=== PATIENT | female | born 1965 | race Caucasian/White ===

== ENCOUNTER 2016-09-05 18:13 | Emergency (ER) | payer BC ==
[~2016-09-05] VITALS: Ht 167.6 cm; Wt 78.0 kg
[~2016-09-05 18:13] MED LIST: ABILIFY10 MG PO; ABILIFY5 MG PO; ADVIL,NUPRIN,M200 MG PO; ALDACTONE25 MG PO; ALPRAZOLAM0.5 MG PO; ARIPIPRAZOLE10 MG PO; ASACOL HD800 MG PO; ATARAX,VISTARIL50 MG PO; ATIVAN1 MG PO; AUGMENTIN875 MG PO; Aldactone PO; BACLOFEN10 MG PO; BACTRIM,SEPT1 TABLE1 PO; BUTALB-APAP-CA1 EACH PO; CARAFATE1 GM PO; CIPRO500 MG PO; COMPAZINE10 MG PO; DAILY VALUE1 EACH PO; DILAUDID2 MG PO; EFFEXOR75 MG PO; FENOFIBRATE160 M1 PO; FERROUS SULFAT325 MG PO; FIORICET 50-301 EACH PO; FIORICET,ESG1 TABLET PO; FLAGYL500 MG PO; FLEXERIL10 MG PO; FLEXERIL5 MG PO; FLUOXETINE HCL20 M1 PO; HYDROCODON-ACE1 EAC7 PO; HYDROCODONE-AP1 EACH PO; HYOSCYAMINE0.375 MG PO; IMITREX100 MG PO; IMITREX25 MG PO; INDERAL LA120 MG PO; INDERAL LA80 MG PO; INDERAL20 MG PO; INDERAL40 MG PO; IRON325 M1 PO; JANUMET XR 50-1 EAC1 PO; KLONOPIN1 MG PO; LEVBID0.375 MG PO; LEVOTHYROXINE50 MCG PO; LORTAB 5-325 M1 EACH PO; Levothroid,Synthroid PO; METFORMIN HCL500 MG PO; MIGRANAL1 ML BOTH NARES; NADOLOL20 MG PO; NAPROSYN500 MG PO; NIFEDIPINE ER30 MG PO; NORCO 5/3251 TABLET PO; ONE-A-DAY ESSE1 EAC1 PO; OXYCODONE HCL5 MG PO; PANTOPRAZOLE SO40 MG PO; PERCOCET 5/31 TABLET PO; PHENERGAN12.5 M1 PO; POTASSIUM CHLO20 ME2 PO; POTASSIUM CITR15 MEQ PO; PREDNISONE10 MG PO; PREDNISONE50 MG PO; PROMETHAZINE HC25 M1 PO; PROPRANOLOL HC120 MG PO; PROTONIX40 MG PO; PROZAC20 MG PO; REGLAN10 MG PO; SOMA350 MG PO; SYMAX DUOTAB0.375 MG PO; SYNTHROID,LEVO0.5 MG; TIZANIDINE HCL2 M1 PO; TOPAMAX100 MG PO; TOPAMAX25 MG PO; TOPAMAX50 MG PO; TOPIRAMATE25 MG PO; TOPIRAMATE50 MG PO; TUMS500 M1 PO; TYLENOL WITH C1 EACH PO; Tums PO; ULTRAM50 MG PO; VALIUM5 MG PO; ZOFRAN ODT8 MG PO; ZOFRAN4 MG PO
[2016-09-05 19:27] LABS: HEMATOCRIT 35.1 % (36.0-46.0); MCHC 34.5 G/DL (30.0-36.0); MCV 86.9 FL (83-99); MEAN PLAT.VOLUME 9.5 uM^3 (9.5-12.4); PLATELET COUNT 425 K/uL (156-360); RBC DIS.WIDTH-CV 13.6 % (11.8-14.6); RBC DIS.WIDTH-SD 42.5 % (39-53); RED BLOOD COUNT 4.04 M/uL (3.80-5.20)
[2016-09-05 19:39] LABS: CHLORIDE 110 mEq/L (99-109); POTASSIUM 3.9 mEq/L (3.7-5.4); SODIUM 140 mEq/L (136-147)
[2016-09-05 19:41] LABS: GLUCOSE 159 mg/dL (70-99)
[2016-09-05 19:42] LABS: ANION GAP 13 MEQ/L (2-14)
[2016-09-05 19:43] LABS: TOTAL BILIRUBIN 0.4 mg/dL (0.0-1.0)
[2016-09-05 19:45] LABS: ALKALINE PHOSPHATASE 187 IU/L (3-129); GFR ESTIMATE (CALCULATED) 56 mL/min/
[2016-09-05 19:46] LABS: UREA NITROGEN (BUN) 20 mg/dL (9-23)
[2016-09-05 19:48] LABS: LIPASE 13 U/L (1.0-51.0)
[2016-09-05 20:02] LABS: QUANTITATIVE HCG < 4.0 MIU/ML
[2016-09-05 20:08] LABS: AMYLASE 17 IU/L (1-118)
[2016-09-05 20:17] LABS: ADD MIUA? YES; BILIRUBIN NEGATIVE; BLOOD LARGE; COLOR YELLOW ((YELLOW)); GLUCOSE (STRIP) NEGATIVE; KETONES NEGATIVE; LEUKOCYTES SMALL; NITRITE NEGATIVE; PROTEIN (STRIP) 100; SPECIFIC GRAVITY 1.019 (1.000-1.030); UROBILINOGEN 0.2 MG/DL (0.2-1.0)
[2016-09-05 20:34] LABS: CASTS NONE SEEN /LPF; EPITHELIAL CELLS 4+ /HPF; MUCUS TRACE /LPF
[2016-09-05 20:36] LABS: BACTERIA 1+ /HPF; UCUL ADDED? NO
[2016-09-05] MEDS ORDERED: PERCOCET 5/31 TABLET PO (23:00)
[2016-09-05] MEDS ORDERED: MACROBID100 MG PO (23:00)
[2016-09-05 23:28] VITALS: BP 104/68
== END 2016-09-05 23:40 | disposition home or self-care (01) ==
LOC: EME 18:13
DX: K85.90 Acute pancreatitis without necrosis or infection, unspecified (principal); K86.1 Other chronic pancreatitis; N39.0 Urinary tract infection, site not specified; R73.9 Hyperglycemia, unspecified; Z87.442 Personal history of urinary calculi; Z95.0 Presence of cardiac pacemaker; F17.200 Nicotine dependence, unspecified, uncomplicated
CPT/HCPCS: 74177; 80053; 81003; 82150; 83690; 84702; 85027; 87086; 99281; 99284; J2270; J2405; J3010; J7030

== ENCOUNTER 2016-09-07 18:25 | Emergency (ER) | payer BC ==
[~2016-09-07] VITALS: Ht 167.6 cm; Wt 77.7 kg
[~2016-09-07 18:25] MED LIST changes: +MACROBID100 MG PO
[2016-09-07 19:06] LABS: MCH 29.5 PG (29.0-34.0); MCHC 33.3 G/DL (30.0-36.0); MCV 88.5 FL (83-99); MEAN PLAT.VOLUME 9.5 uM^3 (9.5-12.4); PLATELET COUNT 361 K/uL (156-360); RBC DIS.WIDTH-CV 13.5 % (11.8-14.6); RBC DIS.WIDTH-SD 43.7 % (39-53); RED BLOOD COUNT 3.73 M/uL (3.80-5.20); WHITE BLOOD COUNT 11.1 K/uL (4.1-10.2)
[2016-09-07 19:17] LABS: CHLORIDE 113 mEq/L (99-109); POTASSIUM 3.6 mEq/L (3.7-5.4); SODIUM 141 mEq/L (136-147)
[2016-09-07 19:20] LABS: GLUCOSE 182 mg/dL (70-99)
[2016-09-07 19:21] LABS: ANION GAP 14 MEQ/L (2-14)
[2016-09-07 19:23] LABS: ALKALINE PHOSPHATASE 186 IU/L (3-129); GFR ESTIMATE (CALCULATED) > 59 mL/min/
[2016-09-07 19:24] LABS: UREA NITROGEN (BUN) 13 mg/dL (9-23)
[2016-09-07 19:30] LABS: TOTAL BILIRUBIN 0.2 mg/dL (0.0-1.0)
[2016-09-07 19:33] LABS: QUANTITATIVE HCG < 4.0 MIU/ML
[2016-09-07 19:34] LABS: ADD MIUA? YES; BILIRUBIN NEGATIVE; BLOOD MODERATE; COLOR YELLOW ((YELLOW)); GLUCOSE (STRIP) NEGATIVE; KETONES NEGATIVE; LEUKOCYTES NEGATIVE; NITRITE NEGATIVE; PROTEIN (STRIP) 30; SPECIFIC GRAVITY 1.011 (1.000-1.030); UROBILINOGEN 0.2 MG/DL (0.2-1.0)
[2016-09-07 19:53] LABS: BACTERIA RARE /HPF; EPITHELIAL CELLS RARE /HPF; HYALINE CASTS 0-5 /LPF; MUCUS TRACE /LPF; RED BLOOD CELLS 40-50 /HPF (0-5); UCUL ADDED? NO; UNCLASSIFIED CRYSTALS 1+ /HPF
[2016-09-07 20:42] LABS: LIPASE 8 U/L (1.0-51.0)
[2016-09-07] MEDS ORDERED: PERCOCET 5/31 TABLET PO (21:50)
[2016-09-07 21:58] VITALS: BP 175/146
== END 2016-09-07 22:00 | disposition home or self-care (01) ==
LOC: EME 18:25
DX: K85.90 Acute pancreatitis without necrosis or infection, unspecified (principal); F17.200 Nicotine dependence, unspecified, uncomplicated; Z88.6 Allergy status to analgesic agent; J45.909 Unspecified asthma, uncomplicated; Z90.49 Acquired absence of other specified parts of digestive tract
CPT/HCPCS: 80053; 81003; 83690; 84702; 85027; 99281; 99284; J2270; J2405; J7030; S0028

== ENCOUNTER 2016-09-27 09:05 | Emergency (ER) | payer BC ==
[~2016-09-27] VITALS: Ht 167.6 cm; Wt 75.3 kg
[2016-09-27] MEDS ORDERED: FIORICET WI1 CAPSULE PO (13:16)
[2016-09-27 13:41] VITALS: BP 157/108
[2016-10-01] MEDS ORDERED: NORCO 10/3251 TABLET PO (10:15)
[2016-10-01] MEDS ORDERED: UROCIT-K15 MEQ PO (10:16)
[2016-10-01] MEDS ORDERED: DIOVAN80 MG PO (10:16)
[2016-10-01] MEDS ORDERED: INVOKAMET XR 11 EAC1 PO (10:19)
[2016-10-01] MEDS ORDERED: JANUMET XR 50-1 EAC1 PO (10:19)
== END 2016-09-27 13:42 | disposition home or self-care (01) ==
LOC: EME 09:05
DX: G43.909 Migraine, unspecified, not intractable, without status migrainosus (principal); F17.200 Nicotine dependence, unspecified, uncomplicated
CPT/HCPCS: 99281; 99285; J1885; J2270; J2765; J7030

== ENCOUNTER 2016-10-04 12:56 | Day surgery (SDC) | payer BC ==
[~2016-10-04] VITALS: Ht 167.6 cm; Wt 77.1 kg
[~2016-10-04 12:56] MED LIST changes: +DIOVAN80 MG PO; +FIORICET WI1 CAPSULE PO; +INVOKAMET XR 11 EAC1 PO; +NORCO 10/3251 TABLET PO; +UROCIT-K15 MEQ PO
[2016-10-04 13:40] LABS: POINT-OF-CARE METER ID UU14174212
== END 2016-10-04 15:30 | disposition home or self-care (01) ==
LOC: PAIN 12:56 → SDC 14:00 → PAIN 15:30
PROVIDERS: Anesthesiology Pain Medicine
PROC: 01513ZZ Destruction of Cervical Nerve, Percutaneous Approach (ICD-10-PCS; principal; 2016-10-04)
DX: M47.812 Spondylosis without myelopathy or radiculopathy, cervical region (principal); F41.1 Generalized anxiety disorder; M54.12 Radiculopathy, cervical region; G89.29 Other chronic pain; M25.511 Pain in right shoulder; F17.200 Nicotine dependence, unspecified, uncomplicated; G43.909 Migraine, unspecified, not intractable, without status migrainosus; I10 Essential (primary) hypertension; F32.9 Major depressive disorder, single episode, unspecified; E11.9 Type 2 diabetes mellitus without complications; Z95.0 Presence of cardiac pacemaker
CPT/HCPCS: 82948; J1030; J2250; J3010; S0020

== ENCOUNTER 2016-10-11 13:21 | Day surgery (SDC) | payer BC ==
[~2016-10-11] VITALS: Ht 167.6 cm; Wt 77.1 kg
[2016-10-11 13:49] LABS: POINT-OF-CARE METER ID UU14174212
== END 2016-10-11 15:15 | disposition home or self-care (01) ==
LOC: PAIN 13:21 → SDC 14:00 → PAIN 14:00
PROVIDERS: Anesthesiology Pain Medicine
PROC: 01513ZZ Destruction of Cervical Nerve, Percutaneous Approach (ICD-10-PCS; principal; 2016-10-11)
DX: M47.812 Spondylosis without myelopathy or radiculopathy, cervical region (principal); F41.9 Anxiety disorder, unspecified; M54.2 Cervicalgia; F17.200 Nicotine dependence, unspecified, uncomplicated; G89.29 Other chronic pain; G43.909 Migraine, unspecified, not intractable, without status migrainosus; M25.511 Pain in right shoulder; I10 Essential (primary) hypertension; E11.9 Type 2 diabetes mellitus without complications; F32.9 Major depressive disorder, single episode, unspecified; Z95.0 Presence of cardiac pacemaker
CPT/HCPCS: 82948; J1030; J2250; J3010; S0020

== ENCOUNTER 2016-10-30 12:38 | Emergency (ER) | payer BC ==
[~2016-10-30] VITALS: Ht 167.6 cm; Wt 73.3 kg
[2016-10-30 14:06] LABS: HEMATOCRIT 37.1 % (36.0-46.0); MCH 30.4 PG (29.0-34.0); MCHC 32.3 G/DL (30.0-36.0); MCV 93.9 FL (83-99); MEAN PLAT.VOLUME 9.1 uM^3 (9.5-12.4); PLATELET COUNT 331 K/uL (156-360); RBC DIS.WIDTH-CV 17.2 % (11.8-14.6); RBC DIS.WIDTH-SD 59.8 % (39-53); RED BLOOD COUNT 3.95 M/uL (3.80-5.20); WHITE BLOOD COUNT 9.4 K/uL (4.1-10.2)
[2016-10-30 14:19] LABS: CHLORIDE 116 mEq/L (99-109); POTASSIUM 3.5 mEq/L (3.7-5.4); SODIUM 138 mEq/L (136-147)
[2016-10-30 14:20] LABS: AMYLASE 29 IU/L (1-118)
[2016-10-30 14:22] LABS: GLUCOSE 110 mg/dL (70-99)
[2016-10-30 14:23] LABS: ANION GAP 14 MEQ/L (2-14)
[2016-10-30 14:24] LABS: TOTAL BILIRUBIN 0.1 mg/dL (0.0-1.0)
[2016-10-30 14:25] LABS: ALKALINE PHOSPHATASE 158 IU/L (3-129); GFR ESTIMATE (CALCULATED) > 59 mL/min/
[2016-10-30 14:26] LABS: UREA NITROGEN (BUN) 11 mg/dL (9-23)
[2016-10-30 14:29] LABS: LIPASE 19 U/L (1.0-51.0)
[2016-10-30 14:31] LABS: TROP-I INTERPRETATION NEGATIVE; TROPONIN-I < 0.01 ng/mL (0.0-0.30)
[2016-10-30 14:37] LABS: ADD MIUA? YES; BILIRUBIN NEGATIVE; BLOOD LARGE; COLOR YELLOW ((YELLOW)); GLUCOSE (STRIP) NEGATIVE; KETONES NEGATIVE; LEUKOCYTES MODERATE; NITRITE NEGATIVE; PROTEIN (STRIP) 100; SPECIFIC GRAVITY 1.015 (1.000-1.030); UROBILINOGEN 0.2 MG/DL (0.2-1.0)
[2016-10-30 14:49] LABS: BACTERIA 1+ /HPF; CASTS NONE SEEN /LPF; EPITHELIAL CELLS 3+ /HPF; MUCUS NONE SEEN /LPF; RED BLOOD CELLS TNTC /HPF (0-5)
[2016-10-30 17:56] LABS: CHLORIDE 118 mEq/L (99-109); POTASSIUM 3.7 mEq/L (3.7-5.4); SODIUM 139 mEq/L (136-147)
[2016-10-30 17:57] LABS: GLUCOSE 107 mg/dL (70-99)
[2016-10-30 17:59] LABS: ANION GAP 13 MEQ/L (2-14)
[2016-10-30 18:01] LABS: GFR ESTIMATE (CALCULATED) > 59 mL/min/
[2016-10-30 18:02] LABS: UREA NITROGEN (BUN) 11 mg/dL (9-23)
[2016-10-30 18:57] LABS: METHEMOGLOBIN 0.4 % (0-1.5); PO2 95 mm Hg (80-100)
[2016-10-30 19:01] LABS: PCO2 < 20 mm Hg (35-45)
[2016-10-30 19:02] LABS: COMMENTS - BLOOD GASES A+C+; SITE LR; pH 7.13 (7.35-7.45)
[2016-10-30] MEDS ORDERED: BENTYL20 MG PO (19:18)
[2016-10-30] MEDS ORDERED: ZOFRAN ODT4 MG PO (19:18)
[2016-10-30 19:44] VITALS: BP 115/66
== END 2016-10-30 19:45 | disposition left against medical advice (07) ==
LOC: EME 12:38
PROVIDERS: Nurse Practitioner Family
DX: E87.2 Acidosis (principal); R10.33 Periumbilical pain; R51 Headache; K86.1 Other chronic pancreatitis; K52.9 Noninfective gastroenteritis and colitis, unspecified; F41.9 Anxiety disorder, unspecified; E87.6 Hypokalemia; E11.9 Type 2 diabetes mellitus without complications; Z79.84 Long term (current) use of oral hypoglycemic drugs; I10 Essential (primary) hypertension; K21.9 Gastro-esophageal reflux disease without esophagitis; N20.0 Calculus of kidney; F17.200 Nicotine dependence, unspecified, uncomplicated; Z95.0 Presence of cardiac pacemaker
CPT/HCPCS: 36600; 74177; 80048 91; 80053; 81003; 82150; 82803; 83605; 83690; 84484; 85027; 93005; 99281; 99284; J1200; J1885; J2765; J7030

== ENCOUNTER 2016-11-15 09:21 | Inpatient (IN) | payer BC ==
[~2016-11-15] VITALS: Ht 170.2 cm; Wt 79.8 kg
[~2016-11-15 09:21] MED LIST changes: +BENTYL20 MG PO; +ZOFRAN ODT4 MG PO
[2016-11-15 10:15] LABS: POINT-OF-CARE METER ID UU13113702
[2016-11-15 10:24] LABS: HEMATOCRIT 25.4 % (36.0-46.0); MCH 29.2 PG (29.0-34.0); MCHC 34.6 G/DL (30.0-36.0); MEAN PLAT.VOLUME 9.9 uM^3 (9.5-12.4); PLATELET COUNT 353 K/uL (156-360); RBC DIS.WIDTH-CV 17.6 % (11.8-14.6); RBC DIS.WIDTH-SD 54.7 % (39-53); RED BLOOD COUNT 3.01 M/uL (3.80-5.20); WHITE BLOOD COUNT 11.4 K/uL (4.1-10.2)
[2016-11-15 10:32] LABS: CHLORIDE 114 mEq/L (99-109); POTASSIUM 2.6 mEq/L (3.7-5.4); SODIUM 139 mEq/L (136-147)
[2016-11-15 10:34] LABS: GLUCOSE 122 mg/dL (70-99)
[2016-11-15 10:37] LABS: ANION GAP 12 MEQ/L (2-14)
[2016-11-15 10:38] LABS: GFR ESTIMATE (CALCULATED) > 59 mL/min/
[2016-11-15 10:39] LABS: UREA NITROGEN (BUN) 23 mg/dL (9-23)
[2016-11-15 10:43] LABS: TROP-I INTERPRETATION NEGATIVE; TROPONIN-I < 0.01 ng/mL (0.0-0.30)
[2016-11-15 10:46] LABS: MCV 84.4 FL (83-99)
[2016-11-15 10:49] LABS: ADD MIUA? YES; BILIRUBIN NEGATIVE; BLOOD NEGATIVE; COLOR YELLOW ((YELLOW)); GLUCOSE (STRIP) NEGATIVE; KETONES NEGATIVE; LEUKOCYTES NEGATIVE; NITRITE NEGATIVE; PROTEIN (STRIP) 30; SPECIFIC GRAVITY 1.015 (1.000-1.030); UROBILINOGEN 0.2 MG/DL (0.2-1.0)
[2016-11-15 11:00] LABS: BACTERIA NONE SEEN /HPF; EPITHELIAL CELLS 2+ /HPF; MUCUS NONE SEEN /LPF; WHITE BLOOD CELLS 0-5 /HPF (0-5)
[2016-11-15 11:23] LABS: ABS NEUTROPHIL COUNT 8.7; ANISOCYTOSIS 1+; EOSINOPHIL ABS CT 0.2; EOSINOPHILS 1.8 % (0-5.0); INSTRUMENT ABS NEUTROPHIL CT 7.2 K/uL; LYMPHOCYTES 18.6 % (15.0-45.0); MYELOCYTES 0.9 %; OVALOCYTES 1+; PLAT.SUFFICIENCY ADEQUATE; POLYCHROMASIA 1+; SEG.NEUTROPHILS 53.1 % (46.0-76.0); SPHEROCYTES 1+
[2016-11-15] MEDS ORDERED: DICYCLOMINE HCL20 MG PO (15:11)
[2016-11-15] MEDS ORDERED: TIZANIDINE HCL2 MG PO (15:16)
[2016-11-15] MEDS ORDERED: ONE-A-DAY ESSE1 EAC1 PO (15:16)
[2016-11-15] MEDS ORDERED: VITAMIN B-122500 MCG SL (15:16)
[2016-11-15 16:14] LABS: LIPASE 25 U/L (1.0-51.0)
[2016-11-15 18:27] VITALS: BP 97/51
[2016-11-15 19:30] VITALS: BP 100/67
[2016-11-15 22:22] LABS: POINT-OF-CARE USER ID NUTSLF44
[2016-11-15 22:39] LABS: HEMATOCRIT 26.6 % (36.0-46.0)
[2016-11-15 22:41] LABS: MCV 88.4 FL (83-99)
[2016-11-16] VITALS (8 sets, daily range): BP systolic 86–104; BP diastolic 50–67
[2016-11-16 06:20] LABS: POINT-OF-CARE USER ID NUTSLF44
[2016-11-16 07:48] LABS: HEMATOCRIT 22.7 % (36.0-46.0); MCH 29.9 PG (29.0-34.0); MCHC 34.8 G/DL (30.0-36.0); MEAN PLAT.VOLUME 9.4 uM^3 (9.5-12.4); PLATELET COUNT 352 K/uL (156-360); RED BLOOD COUNT 2.64 M/uL (3.80-5.20); WHITE BLOOD COUNT 10.2 K/uL (4.1-10.2)
[2016-11-16 08:01] LABS: Estimated Average Glucose 134 mg/dL (70-123)
[2016-11-16 08:17] LABS: INTER. NORMALIZED RATIO 1.1; PROTHROMBIN TIME 10.7 (9.2-11.2)
[2016-11-16 08:19] LABS: HEMOGLOBIN A1c (GLYCOHEMOGLOB) 6.3 % HGB (Below 5.7)
[2016-11-16 08:36] LABS: ANION GAP 12 MEQ/L (2-14); CHLORIDE 116 MEQ/L (99-109); GFR ESTIMATE (CALCULATED) > 59 mL/min/; GLUCOSE 108 mg/dL (70-99); POTASSIUM 2.6 MEQ/L (3.7-5.4); SAMPLE HEMOLYSIS CHECK 0; SAMPLE ICTERIC CHECK 0; SAMPLE LIPEMIA CHECK 0; SODIUM 140 MEQ/L (136-147); UREA NITROGEN (BUN) 13 mg/dL (9-23)
[2016-11-16 15:21] LABS: ALKALINE PHOSPHATASE 128 IU/L (3-129); DIRECT BILIRUBIN 0.1 mg/dL (0.0-0.3); MAGNESIUM 1.6 mg/dl (1.3-2.7); TOTAL BILIRUBIN 0.3 MG/DL (0.0-1.0)
[2016-11-16 19:01] LABS: UR CREATININE CONCENTRATION 78.3 MG/DL
[2016-11-16 21:50] LABS: POINT-OF-CARE USER ID ENVMNS
[2016-11-17] VITALS (8 sets, daily range): BP systolic 82–101; BP diastolic 52–69
[2016-11-17 08:12] LABS: ANION GAP 11 MEQ/L (2-14); CHLORIDE 114 MEQ/L (99-109); GFR ESTIMATE (CALCULATED) > 59 mL/min/; GLUCOSE 101 mg/dL (70-99); SAMPLE HEMOLYSIS CHECK 0; SAMPLE ICTERIC CHECK 0; SAMPLE LIPEMIA CHECK 0; SODIUM 140 MEQ/L (136-147); UREA NITROGEN (BUN) 12 mg/dL (9-23)
[2016-11-17 08:16] LABS: POTASSIUM 3.5 MEQ/L (3.7-5.4)
[2016-11-17 09:12] LABS: EOSINOPHIL COUNT 0.2 K/uL (0-0.3); HEMATOCRIT 21.4 % (36.0-46.0); IMMATURE GRANULOCYTE (%) 3.4 % (0.0-0.7); IMMATURE GRANULOCYTE COUNT 0.3 K/uL; INSTRUMENT ABS NEUTROPHIL CT 5.8 K/uL; LYMPHOCYTE COUNT 2.6 K/uL (1.0-2.8); MCH 29.8 PG (29.0-34.0); MCHC 33.6 G/DL (30.0-36.0); MCV 88.4 FL (83-99); MEAN PLAT.VOLUME 9.6 uM^3 (9.5-12.4); MONOCYTE (%) 6.4 % (3-12); MONOCYTE COUNT 0.6 K/uL (0-0.8); NEUTROPHIL (%) 60.8 % (45-76); NEUTROPHIL COUNT 5.8 K/uL (1.8-6.4); NRBC (%) 0.3 /100 WBC (0-0); PLATELET COUNT 362 K/uL (156-360); RBC DIS.WIDTH-CV 18.3 % (11.8-14.6); RBC DIS.WIDTH-SD 59.3 % (39-53); RED BLOOD COUNT 2.42 M/uL (3.80-5.20); WHITE BLOOD COUNT 9.6 K/uL (4.1-10.2)
[2016-11-17 11:23] LABS: POINT-OF-CARE METER ID UU13113781
[2016-11-17 16:26] LABS: POINT-OF-CARE METER ID UU13113781
[2016-11-17 19:28] LABS: HEMATOCRIT 20.1 % (36.0-46.0); MCV 85.2 FL (83-99)
[2016-11-18 00:44] VITALS: BP 110/60
[2016-11-18 01:43] VITALS: BP 97/62
[2016-11-18 02:44] VITALS: BP 96/54
[2016-11-18 06:55] LABS: ANION GAP 10 MEQ/L (2-14); CHLORIDE 114 MEQ/L (99-109); GFR ESTIMATE (CALCULATED) > 59 mL/min/; GLUCOSE 123 mg/dL (70-99); POTASSIUM 3.7 MEQ/L (3.7-5.4); SAMPLE HEMOLYSIS CHECK 0; SAMPLE ICTERIC CHECK 0; SAMPLE LIPEMIA CHECK 0; SODIUM 140 MEQ/L (136-147); UREA NITROGEN (BUN) 7 mg/dL (9-23)
[2016-11-18 07:01] VITALS: BP 115/85
[2016-11-18 07:01] LABS: POC NON-PRINT COM 1 ND
[2016-11-18 11:33] LABS: POINT-OF-CARE METER ID UU13113781
[2016-11-18 12:00] VITALS: BP 129/79
[2016-11-18 14:05] LABS: HEMATOCRIT 26.4 % (36.0-46.0); MCV 87.4 FL (83-99)
[2016-11-18] MEDS ORDERED: PROPRANOLOL HCL60 MG PO (15:00)
[2016-11-18] MEDS ORDERED: AUGMENTIN875 MG PO (15:12)
[2016-11-19 13:54] LABS: POC NON-PRINT COM 1 ND
== END 2016-11-18 15:30 | disposition home or self-care (01) | DRG 871 ==
LOC: EME 09:21 → EDOF 13:28 → 4EAST 13:28 → EDOF 15:27 → 4EAST 17:51
PROVIDERS: Emergency Medicine; Hospitalist; Internal Medicine; Physician Assistant
PROC: 30233N1 Transfusion of Nonautologous Red Blood Cells into Peripheral Vein, Percutaneous Approach (ICD-10-PCS; principal; 2016-11-17)
DX: A41.9 Sepsis, unspecified organism (principal); J18.9 Pneumonia, unspecified organism; J96.00 Acute respiratory failure, unspecified whether with hypoxia or hypercapnia; K92.2 Gastrointestinal hemorrhage, unspecified; E87.2 Acidosis; I49.5 Sick sinus syndrome; D50.0 Iron deficiency anemia secondary to blood loss (chronic); E11.9 Type 2 diabetes mellitus without complications; I10 Essential (primary) hypertension; F32.9 Major depressive disorder, single episode, unspecified; F41.9 Anxiety disorder, unspecified; E07.9 Disorder of thyroid, unspecified; E03.9 Hypothyroidism, unspecified; F17.210 Nicotine dependence, cigarettes, uncomplicated; E87.6 Hypokalemia; R63.4 Abnormal weight loss; K86.1 Other chronic pancreatitis; K58.9 Irritable bowel syndrome, unspecified; N20.0 Calculus of kidney; G43.909 Migraine, unspecified, not intractable, without status migrainosus; E83.42 Hypomagnesemia; I95.9 Hypotension, unspecified; Z95.0 Presence of cardiac pacemaker; Z90.49 Acquired absence of other specified parts of digestive tract; Z87.11 Personal history of peptic ulcer disease; Z90.710 Acquired absence of both cervix and uterus
CPT/HCPCS: 71010; 74177; 80048; 80076; 81003; 82140; 82272; 82436; 82570; 82948; 83036; 83605; 83690; 83735; 84133; 84300; 84484; 85014; 85018; 85025; 85027; 85610; 86900; 86901; 86920; 87040; 94799; 99281; 99285; J0696; J1815; J1885; J2270; J2405; J3475; J3480; J7030; J7040; J7050; J7120; P9016

== ENCOUNTER 2016-12-07 15:11 | Inpatient (IN) | payer BC ==
[~2016-12-07] VITALS: Ht 167.6 cm; Wt 70.2 kg
[~2016-12-07 15:11] MED LIST changes: +DICYCLOMINE HCL20 MG PO; +PROPRANOLOL HCL60 MG PO; +TIZANIDINE HCL2 MG PO; +VITAMIN B-122500 MCG SL
[2016-12-07 16:03] LABS: HEMATOCRIT 33.4 % (36.0-46.0); MCH 29.4 PG (29.0-34.0); MCHC 33.8 G/DL (30.0-36.0); MCV 86.8 FL (83-99); MEAN PLAT.VOLUME 9.6 uM^3 (9.5-12.4); PLATELET COUNT 373 K/uL (156-360); RBC DIS.WIDTH-CV 18.7 % (11.8-14.6); RBC DIS.WIDTH-SD 60.3 % (39-53); RED BLOOD COUNT 3.85 M/uL (3.80-5.20); WHITE BLOOD COUNT 15.9 K/uL (4.1-10.2)
[2016-12-07 16:22] LABS: CHLORIDE 120 mEq/L (99-109); POTASSIUM 2.7 mEq/L (3.7-5.4); SODIUM 145 mEq/L (136-147)
[2016-12-07 16:24] LABS: GLUCOSE 115 mg/dL (70-99)
[2016-12-07 16:25] LABS: ANION GAP 14 MEQ/L (2-14)
[2016-12-07 16:26] LABS: TOTAL BILIRUBIN 0.2 mg/dL (0.0-1.0)
[2016-12-07 16:28] LABS: ALKALINE PHOSPHATASE 194 IU/L (3-129); GFR ESTIMATE (CALCULATED) > 59 mL/min/
[2016-12-07 16:29] LABS: UREA NITROGEN (BUN) 14 mg/dL (9-23)
[2016-12-07 16:36] LABS: QUANTITATIVE HCG < 4.0 MIU/ML
[2016-12-07] MEDS ORDERED: UCERIS9 MG PO (19:35)
[2016-12-07] MEDS ORDERED: VALSARTAN80 MG PO (19:36)
[2016-12-07 19:44] LABS: ADD MIUA? YES; BILIRUBIN NEGATIVE; BLOOD MODERATE; COLOR YELLOW ((YELLOW)); GLUCOSE (STRIP) NEGATIVE; KETONES NEGATIVE; LEUKOCYTES MODERATE; NITRITE POSITIVE; PROTEIN (STRIP) 100; SPECIFIC GRAVITY 1.023 (1.000-1.030); UROBILINOGEN 0.2 MG/DL (0.2-1.0)
[2016-12-07 19:49] LABS: BACTERIA 3+ /HPF; EPITHELIAL CELLS 2+ /HPF; MUCUS TRACE /LPF; RED BLOOD CELLS 20-30 /HPF (0-5); UCUL ADDED? YES; WHITE BLOOD CELLS 20-30 /HPF (0-5)
[2016-12-07 23:34] VITALS: BP 198/115
[2016-12-08 06:27] LABS: BASOPHIL COUNT 0.1 K/uL (0-0.1); EOSINOPHIL (%) 0.3 % (0-5); EOSINOPHIL COUNT 0.1 K/uL (0-0.3); IMMATURE GRANULOCYTE COUNT 0.5 K/uL; INSTRUMENT ABS NEUTROPHIL CT 19.3 K/uL; MCH 29.9 PG (29.0-34.0); MCHC 33.6 G/DL (30.0-36.0); MCV 89.2 FL (83-99); MEAN PLAT.VOLUME 9.3 uM^3 (9.5-12.4); MONOCYTE (%) 2.6 % (3-12); MONOCYTE COUNT 0.6 K/uL (0-0.8); NEUTROPHIL (%) 85.8 % (45-76); NEUTROPHIL COUNT 19.3 K/uL (1.8-6.4); PLATELET COUNT 436 K/uL (156-360); RBC DIS.WIDTH-CV 19.2 % (11.8-14.6); RBC DIS.WIDTH-SD 62.7 % (39-53); RED BLOOD COUNT 3.14 M/uL (3.80-5.20); WHITE BLOOD COUNT 22.5 K/uL (4.1-10.2)
[2016-12-08 06:35] LABS: ANION GAP 10 MEQ/L (2-14); CHLORIDE 122 MEQ/L (99-109); GFR ESTIMATE (CALCULATED) > 59 mL/min/; GLUCOSE 167 mg/dL (70-99); SAMPLE HEMOLYSIS CHECK 0; SAMPLE ICTERIC CHECK 0; SAMPLE LIPEMIA CHECK 0; SODIUM 141 MEQ/L (136-147); UREA NITROGEN (BUN) 13 mg/dL (9-23)
[2016-12-08 06:42] LABS: CARBON DIOXIDE (BICARBONATE) < 10.0 MEQ/L (20-31)
[2016-12-08 07:37] VITALS: BP 175/84
[2016-12-08 08:47] LABS: ALKALINE PHOSPHATASE 204 IU/L (3-129); DIRECT BILIRUBIN 0.1 mg/dL (0.0-0.3); TOTAL BILIRUBIN 0.4 MG/DL (0.0-1.0)
[2016-12-08 10:44] VITALS: BP 179/93
[2016-12-08 11:20] LABS: POINT-OF-CARE METER ID UU13113725
[2016-12-08 12:22] VITALS: BP 114/70
[2016-12-08 12:34] VITALS: BP 136/84
[2016-12-08 15:31] LABS: POINT-OF-CARE METER ID UU13113725
[2016-12-08 15:51] VITALS: BP 120/76
[2016-12-08 17:07] LABS: ANION GAP 9 MEQ/L (2-14); CHLORIDE 116 MEQ/L (99-109); GFR ESTIMATE (CALCULATED) > 59 mL/min/; GLUCOSE 179 mg/dL (70-99); HDL CHOLESTEROL 24 MG/DL (Desirable>=50); LDL CHOLESTEROL 41 mg/dL (Desirable<100); LIPASE 22 U/L (1.0-51.0); NON-HDL CHOLESTEROL 72 mg/dL (Desirable<160); POTASSIUM 3.7 MEQ/L (3.7-5.4); SAMPLE HEMOLYSIS CHECK 0; SAMPLE ICTERIC CHECK 0; SAMPLE LIPEMIA CHECK 0; SODIUM 138 MEQ/L (136-147); TOTAL CHOLESTEROL 96 mg/dL (Desirable<200); TRIGLYCERIDES 156 MG/DL (Normal: <150); UREA NITROGEN (BUN) 13 mg/dL (9-23)
[2016-12-08 21:26] LABS: POINT-OF-CARE METER ID UU13113725
[2016-12-09 00:05] VITALS: BP 114/70
[2016-12-09 00:30] LABS: C DIFF TOXIN NEGATIVE (NEGATIVE)
[2016-12-09 00:32] LABS: PROBE CHECK PASS; SPECIMEN PROCESSING CONTROL PASS
[2016-12-09 05:36] LABS: POINT-OF-CARE METER ID UU13113725
[2016-12-09 05:38] LABS: HEMATOCRIT 24.9 % (36.0-46.0); MCH 30.6 PG (29.0-34.0); MCHC 35.7 G/DL (30.0-36.0); MCV 85.6 FL (83-99); MEAN PLAT.VOLUME 9.5 uM^3 (9.5-12.4); NRBC (%) 0.1 /100 WBC (0-0); PLATELET COUNT 469 K/uL (156-360); RBC DIS.WIDTH-CV 18.5 % (11.8-14.6); RBC DIS.WIDTH-SD 57.7 % (39-53); RED BLOOD COUNT 2.91 M/uL (3.80-5.20); WHITE BLOOD COUNT 22.7 K/uL (4.1-10.2)
[2016-12-09 06:25] LABS: ALKALINE PHOSPHATASE 166 IU/L (3-129); ANION GAP 8 MEQ/L (2-14); C-REACTIVE PROTEIN 46.8 MG/L (0-10); CHLORIDE 112 MEQ/L (99-109); GFR ESTIMATE (CALCULATED) > 59 mL/min/; GLUCOSE 243 mg/dL (70-99); MAGNESIUM 1.6 mg/dl (1.3-2.7); POTASSIUM 3.6 MEQ/L (3.7-5.4); SAMPLE HEMOLYSIS CHECK 0; SAMPLE ICTERIC CHECK 0; SAMPLE LIPEMIA CHECK 0; SODIUM 139 MEQ/L (136-147); TOTAL BILIRUBIN 0.4 MG/DL (0.0-1.0); UREA NITROGEN (BUN) 13 mg/dL (9-23)
[2016-12-09 08:21] VITALS: BP 142/86
[2016-12-09 12:11] LABS: POINT-OF-CARE METER ID UU13113725
[2016-12-09 15:48] LABS: ANION GAP 8 MEQ/L (2-14); CHLORIDE 108 MEQ/L (99-109); GFR ESTIMATE (CALCULATED) > 59 mL/min/; GLUCOSE 206 mg/dL (70-99); POTASSIUM 3.2 MEQ/L (3.7-5.4); SAMPLE HEMOLYSIS CHECK 0; SAMPLE ICTERIC CHECK 0; SAMPLE LIPEMIA CHECK 0; SODIUM 139 MEQ/L (136-147); UREA NITROGEN (BUN) 13 mg/dL (9-23)
[2016-12-09 16:24] VITALS: BP 153/86; BP 1538/86
[2016-12-09 16:25] LABS: POINT-OF-CARE METER ID UU13113725
[2016-12-09 20:55] LABS: POINT-OF-CARE METER ID UU13113725
[2016-12-09 23:02] VITALS: BP 125/81
[2016-12-10 06:03] LABS: POINT-OF-CARE METER ID UU13113725
[2016-12-10 07:09] LABS: HEMATOCRIT 25.3 % (36.0-46.0); MCH 30.4 PG (29.0-34.0); MCHC 35.2 G/DL (30.0-36.0); MCV 86.3 FL (83-99); MEAN PLAT.VOLUME 9.6 uM^3 (9.5-12.4); PLATELET COUNT 394 K/uL (156-360); RBC DIS.WIDTH-CV 18.4 % (11.8-14.6); RBC DIS.WIDTH-SD 58.4 % (39-53); RED BLOOD COUNT 2.93 M/uL (3.80-5.20); WHITE BLOOD COUNT 18.8 K/uL (4.1-10.2)
[2016-12-10 07:39] LABS: ALKALINE PHOSPHATASE 148 IU/L (3-129); ANION GAP 12 MEQ/L (2-14); CHLORIDE 107 MEQ/L (99-109); GFR ESTIMATE (CALCULATED) > 59 mL/min/; MAGNESIUM 1.7 mg/dl (1.3-2.7); POTASSIUM 2.6 MEQ/L (3.7-5.4); SAMPLE HEMOLYSIS CHECK 0; SAMPLE ICTERIC CHECK 0; SAMPLE LIPEMIA CHECK 0; SODIUM 143 MEQ/L (136-147); TOTAL BILIRUBIN 0.4 MG/DL (0.0-1.0); UREA NITROGEN (BUN) 12 mg/dL (9-23)
[2016-12-10 07:40] LABS: GLUCOSE 84 mg/dL (70-99)
[2016-12-10 08:10] VITALS: BP 125/76
[2016-12-10 11:39] LABS: POINT-OF-CARE METER ID UU13113725
[2016-12-10 16:00] VITALS: BP 139/79
[2016-12-10 16:34] LABS: ANION GAP 11 MEQ/L (2-14); CHLORIDE 104 MEQ/L (99-109); GFR ESTIMATE (CALCULATED) > 59 mL/min/; SAMPLE HEMOLYSIS CHECK 0; SAMPLE ICTERIC CHECK 0; SAMPLE LIPEMIA CHECK 0; SODIUM 137 MEQ/L (136-147); UREA NITROGEN (BUN) 11 mg/dL (9-23)
[2016-12-10 16:41] LABS: GLUCOSE 270 mg/dL (70-99); POTASSIUM 3.2 MEQ/L (3.7-5.4)
[2016-12-10 16:50] LABS: POINT-OF-CARE METER ID UU13113725
[2016-12-10 21:02] LABS: POINT-OF-CARE METER ID UU13113725
[2016-12-11 03:46] VITALS: BP 153/77
[2016-12-11 06:16] LABS: POINT-OF-CARE METER ID UU13113725
[2016-12-11 06:45] LABS: EOSINOPHIL (%) 0.2 % (0-5); HEMATOCRIT 24.2 % (36.0-46.0); IMMATURE GRANULOCYTE (%) 0.7 % (0.0-0.7); IMMATURE GRANULOCYTE COUNT 0.1 K/uL; LYMPHOCYTE COUNT 4.1 K/uL (1.0-2.8); MCH 29.8 PG (29.0-34.0); MCHC 33.5 G/DL (30.0-36.0); MEAN PLAT.VOLUME 9.2 uM^3 (9.5-12.4); MONOCYTE (%) 8.5 % (3-12); NEUTROPHIL (%) 57.2 % (45-76); PLATELET COUNT 286 K/uL (156-360); RBC DIS.WIDTH-CV 18.3 % (11.8-14.6); RBC DIS.WIDTH-SD 59.9 % (39-53); RED BLOOD COUNT 2.72 M/uL (3.80-5.20); WHITE BLOOD COUNT 12.3 K/uL (4.1-10.2)
[2016-12-11 06:49] VITALS: BP 137/85
[2016-12-11 07:02] LABS: ANION GAP 10 MEQ/L (2-14); CHLORIDE 108 MEQ/L (99-109); GFR ESTIMATE (CALCULATED) > 59 mL/min/; LIPASE 101 U/L (1.0-51.0); POTASSIUM 2.9 MEQ/L (3.7-5.4); SAMPLE HEMOLYSIS CHECK 0; SAMPLE ICTERIC CHECK 0; SAMPLE LIPEMIA CHECK 0; SODIUM 141 MEQ/L (136-147); UREA NITROGEN (BUN) 10 mg/dL (9-23)
[2016-12-11 07:03] LABS: ALKALINE PHOSPHATASE 139 IU/L (3-129); ANION GAP 8 MEQ/L (2-14); CHLORIDE 108 MEQ/L (99-109); GFR ESTIMATE (CALCULATED) > 59 mL/min/; POTASSIUM 2.9 MEQ/L (3.7-5.4); SAMPLE HEMOLYSIS CHECK 0; SAMPLE ICTERIC CHECK 0; SAMPLE LIPEMIA CHECK 0; SODIUM 141 MEQ/L (136-147); UREA NITROGEN (BUN) 10 mg/dL (9-23)
[2016-12-11 07:05] LABS: GLUCOSE 132 mg/dL (70-99); TOTAL BILIRUBIN 0.3 MG/DL (0.0-1.0)
[2016-12-11 15:43] VITALS: BP 145/80
[2016-12-11 17:49] LABS: ANION GAP 7 MEQ/L (2-14); CHLORIDE 104 MEQ/L (99-109); GFR ESTIMATE (CALCULATED) > 59 mL/min/; SAMPLE HEMOLYSIS CHECK 0; SAMPLE ICTERIC CHECK 0; SAMPLE LIPEMIA CHECK 0; SODIUM 137 MEQ/L (136-147); UREA NITROGEN (BUN) 10 mg/dL (9-23)
[2016-12-11 17:52] LABS: GLUCOSE 386 mg/dL (70-99); POTASSIUM 4.1 MEQ/L (3.7-5.4)
[2016-12-11 20:12] VITALS: BP 146/86
[2016-12-11 21:25] LABS: POINT-OF-CARE METER ID UU13113725
[2016-12-12] VITALS: BP 147/77
[2016-12-12 03:37] VITALS: BP 129/84
[2016-12-12 06:26] LABS: POINT-OF-CARE METER ID UU13113725
[2016-12-12 07:11] LABS: HEMATOCRIT 24.8 % (36.0-46.0); MCH 30.5 PG (29.0-34.0); MCHC 33.5 G/DL (30.0-36.0); MCV 91.2 FL (83-99); PLATELET COUNT 283 K/uL (156-360); RBC DIS.WIDTH-CV 18.2 % (11.8-14.6); RBC DIS.WIDTH-SD 60.1 % (39-53); RED BLOOD COUNT 2.72 M/uL (3.80-5.20); WHITE BLOOD COUNT 13.1 K/uL (4.1-10.2)
[2016-12-12 07:35] LABS: ANION GAP 10 MEQ/L (2-14); CHLORIDE 105 MEQ/L (99-109); GFR ESTIMATE (CALCULATED) > 59 mL/min/; MAGNESIUM 1.5 mg/dl (1.3-2.7); POTASSIUM 3.8 MEQ/L (3.7-5.4); SAMPLE HEMOLYSIS CHECK 0; SAMPLE ICTERIC CHECK 0; SAMPLE LIPEMIA CHECK 0; SODIUM 139 MEQ/L (136-147); UREA NITROGEN (BUN) 8 mg/dL (9-23)
[2016-12-12 07:46] LABS: GLUCOSE 144 mg/dL (70-99)
[2016-12-12 07:47] VITALS: BP 163/81
[2016-12-12 11:32] LABS: POINT-OF-CARE METER ID UU13113725
[2016-12-12] MEDS ORDERED: NICOTINE PATCH1 EAC1 TD (14:03)
[2016-12-12] MEDS ORDERED: LANTUS 10100 UNITS/ SC (14:03)
[2016-12-12] MEDS ORDERED: NORCO 10/3251 TABLET PO (14:03)
[2016-12-12] MEDS ORDERED: K-DUR20 MEQ PO ×2 (14:03→14:14)
[2016-12-12] MEDS ORDERED: DELZICOL400 M1 PO (14:03)
[2016-12-12] MEDS ORDERED: NABI650T PO (14:03)
[2016-12-12] MEDS ORDERED: MILLIPRED5 MG PO (14:03)
[2016-12-12] MEDS ORDERED: ONE TOUCH ULTR1 EAC4 MC (14:29)
[2016-12-12] MEDS ORDERED: ONE TOUCH DELI1 EAC2 MC (14:29)
[2016-12-12] MEDS ORDERED: ONE TOUCH ULTR1 EACH MC (14:29)
[2016-12-12] MEDS ORDERED: INSULIN SYRING1 EA30 MC (14:41)
[2016-12-12] MEDS ORDERED: EASY TOUCH HYP1 EA10 MC (14:41)
[2016-12-13 09:47] LABS: POINT-OF-CARE METER ID UU13113725
[2016-12-13 09:47] LABS: POINT-OF-CARE METER ID UU13113725
[2016-12-14 00:07] LABS: Pancreatic Elastase-1 68 mcg/g (())
== END 2016-12-12 16:25 | disposition home or self-care (01) | DRG 439 ==
LOC: EME 15:11 → EDOF 20:28 → 5EAST 20:28
PROVIDERS: Hospitalist; Internal Medicine; Internal Medicine Gastroenterology
DX: K85.90 Acute pancreatitis without necrosis or infection, unspecified (principal); K86.1 Other chronic pancreatitis; N10 Acute pyelonephritis; B96.20 Unspecified Escherichia coli [E. coli] as the cause of diseases classified elsewhere; N25.89 Other disorders resulting from impaired renal tubular function; N20.2 Calculus of kidney with calculus of ureter; E87.6 Hypokalemia; E87.2 Acidosis; K58.0 Irritable bowel syndrome with diarrhea; K50.10 Crohn's disease of large intestine without complications; K25.7 Chronic gastric ulcer without hemorrhage or perforation; K26.9 Duodenal ulcer, unspecified as acute or chronic, without hemorrhage or perforation; G43.909 Migraine, unspecified, not intractable, without status migrainosus; D50.9 Iron deficiency anemia, unspecified; I10 Essential (primary) hypertension; E03.9 Hypothyroidism, unspecified; I49.5 Sick sinus syndrome; Z95.0 Presence of cardiac pacemaker; E11.9 Type 2 diabetes mellitus without complications; T38.0X5A Adverse effect of glucocorticoids and synthetic analogues, initial encounter; F32.9 Major depressive disorder, single episode, unspecified; F41.9 Anxiety disorder, unspecified; F17.210 Nicotine dependence, cigarettes, uncomplicated; Z90.49 Acquired absence of other specified parts of digestive tract; Z90.710 Acquired absence of both cervix and uterus
CPT/HCPCS: 74020; 74177; 80048; 80048 91; 80053; 80061; 80076; 81003; 82656 90; 82800; 82948; 83605; 83690; 83735; 84702; 85025; 85027; 86140; 87040; 87077; 87086; 87186; 87493; 87506; 88305; 88342; 99281; 99284; C9113; J0360; J0696; J1170; J1650; J1756; J1815; J2270; J2405; J2930; J3010; J3475; J3480; J7030; J7050; J7070; J7120; J7512; Q0177

== ENCOUNTER 2017-01-01 18:42 | Emergency (ER) | payer BC ==
[~2017-01-01] VITALS: Ht 167.6 cm; Wt 67.4 kg
[~2017-01-01 18:42] MED LIST changes: +DELZICOL400 M1 PO; +EASY TOUCH HYP1 EA10 MC; +INSULIN SYRING1 EA30 MC; +K-DUR20 MEQ PO; +LANTUS 10100 UNITS/ SC; +MILLIPRED5 MG PO; +NABI650T PO; +NICOTINE PATCH1 EAC1 TD; +ONE TOUCH DELI1 EAC2 MC; +ONE TOUCH ULTR1 EAC4 MC; +ONE TOUCH ULTR1 EACH MC; +UCERIS9 MG PO; +VALSARTAN80 MG PO
[2017-01-01 20:12] LABS: HEMATOCRIT 33.3 % (36.0-46.0); MCH 31.1 PG (29.0-34.0); MCHC 33.3 G/DL (30.0-36.0); MCV 93.3 FL (83-99); MEAN PLAT.VOLUME 9.3 uM^3 (9.5-12.4); PLATELET COUNT 305 K/uL (156-360); RBC DIS.WIDTH-CV 18.2 % (11.8-14.6); RBC DIS.WIDTH-SD 61.9 % (39-53); WHITE BLOOD COUNT 12.5 K/uL (4.1-10.2)
[2017-01-01 20:16] LABS: RED BLOOD COUNT 3.57 M/uL (3.80-5.20)
[2017-01-01 20:17] LABS: CHLORIDE 113 mEq/L (99-109); SODIUM 143 mEq/L (136-147)
[2017-01-01 20:19] LABS: GLUCOSE 120 mg/dL (70-99)
[2017-01-01 20:21] LABS: ANION GAP 13 MEQ/L (2-14); TOTAL BILIRUBIN 0.2 mg/dL (0.0-1.0)
[2017-01-01 20:23] LABS: ALKALINE PHOSPHATASE 174 IU/L (3-129); GFR ESTIMATE (CALCULATED) > 59 mL/min/
[2017-01-01 20:24] LABS: UREA NITROGEN (BUN) 6 mg/dL (9-23)
[2017-01-01 20:26] LABS: LIPASE 7 U/L (1.0-51.0)
[2017-01-01 20:33] LABS: QUANTITATIVE HCG < 4.0 MIU/ML
[2017-01-01 21:16] LABS: ADD MIUA? YES; BILIRUBIN NEGATIVE; BLOOD NEGATIVE; COLOR AMBER ((YELLOW)); GLUCOSE (STRIP) 150; KETONES NEGATIVE; LEUKOCYTES NEGATIVE; NITRITE NEGATIVE; PROTEIN (STRIP) NEGATIVE; SPECIFIC GRAVITY 1.012 (1.000-1.030); UROBILINOGEN 0.2 MG/DL (0.2-1.0)
[2017-01-01 21:18] LABS: BACTERIA NONE SEEN /HPF; EPITHELIAL CELLS RARE /HPF; MUCUS NONE SEEN /LPF; RED BLOOD CELLS 0-5 /HPF (0-5); UCUL ADDED? NO; WHITE BLOOD CELLS 0-5 /HPF (0-5)
[2017-01-01 22:21] VITALS: BP 147/91
== END 2017-01-01 22:22 | disposition home or self-care (01) ==
LOC: EME 18:42
DX: K51.90 Ulcerative colitis, unspecified, without complications (principal); K86.1 Other chronic pancreatitis; N13.2 Hydronephrosis with renal and ureteral calculous obstruction; F17.200 Nicotine dependence, unspecified, uncomplicated; Z90.49 Acquired absence of other specified parts of digestive tract
CPT/HCPCS: 74177; 80053; 81003; 83690; 84702; 85027; 99281; 99285; J2270; J2405; J3010; J7030

== ENCOUNTER 2017-01-04 17:08 | Emergency (ER) | payer BC ==
[~2017-01-04] VITALS: Ht 167.6 cm; Wt 65.0 kg
[2017-01-04 20:26] LABS: HEMATOCRIT 33.7 % (36.0-46.0); MCH 30.5 PG (29.0-34.0); MCHC 32.9 G/DL (30.0-36.0); MCV 92.6 FL (83-99); MEAN PLAT.VOLUME 9.2 uM^3 (9.5-12.4); PLATELET COUNT 223 K/uL (156-360); RBC DIS.WIDTH-CV 17.4 % (11.8-14.6); RED BLOOD COUNT 3.64 M/uL (3.80-5.20); WHITE BLOOD COUNT 12.4 K/uL (4.1-10.2)
[2017-01-04 21:04] LABS: CHLORIDE 115 mEq/L (99-109); POTASSIUM 2.8 mEq/L (3.7-5.4); SODIUM 143 mEq/L (136-147)
[2017-01-04 21:06] LABS: GLUCOSE 98 mg/dL (70-99)
[2017-01-04 21:07] LABS: ANION GAP 12 MEQ/L (2-14)
[2017-01-04 21:09] LABS: TOTAL BILIRUBIN 0.5 mg/dL (0.0-1.0)
[2017-01-04 21:10] LABS: ALKALINE PHOSPHATASE 167 IU/L (3-129); GFR ESTIMATE (CALCULATED) > 59 mL/min/
[2017-01-04 21:11] LABS: UREA NITROGEN (BUN) 16 mg/dL (9-23)
[2017-01-04 21:13] LABS: LIPASE 5 U/L (1.0-51.0)
[2017-01-04 21:19] LABS: QUANTITATIVE HCG < 4.0 MIU/ML
[2017-01-04] MEDS ORDERED: FLAGYL500 MG PO (23:45)
[2017-01-04] MEDS ORDERED: CIPRO500 MG PO (23:45)
[2017-01-05] MEDS ORDERED: OXAYDO5 MG PO (00:10)
[2017-01-05 00:15] VITALS: BP 177/99
== END 2017-01-05 00:15 | disposition home or self-care (01) ==
LOC: EME 17:08
PROVIDERS: Emergency Medicine
DX: K50.90 Crohn's disease, unspecified, without complications (principal); F17.200 Nicotine dependence, unspecified, uncomplicated; Z88.6 Allergy status to analgesic agent; Z90.49 Acquired absence of other specified parts of digestive tract
CPT/HCPCS: 74177; 80053; 81003; 83690; 84702; 85027; 99281; 99284; J2270

== ENCOUNTER 2017-01-16 17:31 | Emergency (ER) | payer BC ==
[~2017-01-16] VITALS: Ht 167.6 cm; Wt 67.2 kg
[~2017-01-16 17:31] MED LIST changes: +OXAYDO5 MG PO
[2017-01-16 18:15] LABS: HEMATOCRIT 28.8 % (36.0-46.0); MCV 91.1 FL (83-99); MEAN PLAT.VOLUME 10.2 uM^3 (9.5-12.4); PLATELET COUNT 248 K/uL (156-360); RBC DIS.WIDTH-SD 60.6 % (39-53); RED BLOOD COUNT 3.16 M/uL (3.80-5.20); WHITE BLOOD COUNT 7.9 K/uL (4.1-10.2)
[2017-01-16 18:24] LABS: CHLORIDE 116 mEq/L (99-109); SODIUM 144 mEq/L (136-147)
[2017-01-16 18:26] LABS: GLUCOSE 164 mg/dL (70-99)
[2017-01-16 18:27] LABS: ANION GAP 9 MEQ/L (2-14)
[2017-01-16 18:28] LABS: TOTAL BILIRUBIN 0.4 mg/dL (0.0-1.0)
[2017-01-16 18:29] LABS: ALKALINE PHOSPHATASE 197 IU/L (3-129); GFR ESTIMATE (CALCULATED) > 59 mL/min/; POTASSIUM 2.4 mEq/L (3.7-5.4)
[2017-01-16 18:31] LABS: UREA NITROGEN (BUN) 7 mg/dL (9-23)
[2017-01-16 18:33] LABS: LIPASE 24 U/L (1.0-51.0)
[2017-01-16 18:42] LABS: QUANTITATIVE HCG < 4.0 MIU/ML
[2017-01-16 21:34] LABS: ADD MIUA? NO; BILIRUBIN NEGATIVE; BLOOD NEGATIVE; COLOR YELLOW ((YELLOW)); GLUCOSE (STRIP) NEGATIVE; KETONES NEGATIVE; LEUKOCYTES NEGATIVE; NITRITE NEGATIVE; PROTEIN (STRIP) 30; SPECIFIC GRAVITY 1.009 (1.000-1.030); UCUL ADDED? NO; UROBILINOGEN 0.2 MG/DL (0.2-1.0)
[2017-01-17] MEDS ORDERED: PROPRANOLOL HCL60 MG PO (00:39)
[2017-01-17] MEDS ORDERED: B COMPLEX #11 EACH PO (00:41)
[2017-01-17] MEDS ORDERED: INVOKAMET 150-1 EACH PO (00:41)
[2017-01-17] MEDS ORDERED: FEOSOL45 MG PO (00:42)
[2017-01-17] MEDS ORDERED: APRISO0.375 GM PO (00:42)
[2017-01-17] MEDS ORDERED: [UNRECOGNIZED DRUG - OTHER] PO (00:43)
[2017-01-17] MEDS ORDERED: TIZANIDINE HCL2 MG PO (00:44)
[2017-01-17 02:37] VITALS: BP 144/95
== END 2017-01-17 02:38 | disposition left against medical advice (07) ==
LOC: EME 17:31
DX: K50.10 Crohn's disease of large intestine without complications (principal); E87.6 Hypokalemia; F17.200 Nicotine dependence, unspecified, uncomplicated; Z87.19 Personal history of other diseases of the digestive system; Z90.49 Acquired absence of other specified parts of digestive tract
CPT/HCPCS: 74177; 80053; 81003; 83690; 84702; 85027; 99281; 99285; J2270; J2405; J3480; J7030

== ENCOUNTER 2017-01-30 21:30 | Emergency (ER) | payer BC ==
[~2017-01-30] VITALS: Ht 167.6 cm; Wt 65.5 kg
[~2017-01-30 21:30] MED LIST changes: +APRISO0.375 GM PO; +B COMPLEX #11 EACH PO; +FEOSOL45 MG PO; +INVOKAMET 150-1 EACH PO; +[UNRECOGNIZED DRUG - OTHER] PO
[2017-01-31 00:49] LABS: BASOPHIL COUNT 0.1 K/uL (0-0.1); EOSINOPHIL (%) 2.3 % (0-5); EOSINOPHIL COUNT 0.3 K/uL (0-0.3); HEMATOCRIT 35.5 % (36.0-46.0); IMMATURE GRANULOCYTE (%) 0.5 % (0.0-0.7); IMMATURE GRANULOCYTE COUNT 0.1 K/uL; LYMPHOCYTE COUNT 3.3 K/uL (1.0-2.8); MCH 30.7 PG (29.0-34.0); MCHC 35.5 G/DL (30.0-36.0); MONOCYTE (%) 8.7 % (3-12); MONOCYTE COUNT 1.1 K/uL (0-0.8); NEUTROPHIL (%) 62.3 % (45-76); PLATELET COUNT 245 K/uL (156-360); RBC DIS.WIDTH-CV 17.3 % (11.8-14.6); RBC DIS.WIDTH-SD 53.9 % (39-53); WHITE BLOOD COUNT 12.8 K/uL (4.1-10.2)
[2017-01-31 00:50] LABS: MCV 86.6 FL (83-99)
[2017-01-31 00:57] LABS: CHLORIDE 113 mEq/L (99-109); SODIUM 147 mEq/L (136-147)
[2017-01-31 00:58] LABS: GLUCOSE 103 mg/dL (70-99)
[2017-01-31 01:00] LABS: ANION GAP 15 MEQ/L (2-14)
[2017-01-31 01:02] LABS: GFR ESTIMATE (CALCULATED) > 59 mL/min/
[2017-01-31 01:03] LABS: UREA NITROGEN (BUN) 9 mg/dL (9-23)
[2017-01-31 01:11] LABS: POTASSIUM 1.7 mEq/L (3.7-5.4)
[2017-01-31 06:06] VITALS: BP 166/96
== END 2017-01-31 06:08 | disposition home or self-care (01) ==
LOC: RME 21:30 → EME 21:30 → RME 01-31 06:08
PROVIDERS: Emergency Medicine
DX: R51 Headache (principal); K50.90 Crohn's disease, unspecified, without complications; Z86.73 Personal history of transient ischemic attack (TIA), and cerebral infarction without residual deficits; Z95.0 Presence of cardiac pacemaker; F17.200 Nicotine dependence, unspecified, uncomplicated
CPT/HCPCS: 80048; 85025; 93005; 99281; 99285; J1100; J1200; J2765; J3010; J7030

== ENCOUNTER 2017-02-19 09:31 | Emergency (ER) | payer BC ==
[~2017-02-19] VITALS: Ht 167.6 cm; Wt 67.7 kg
[2017-02-19 14:09] VITALS: BP 166/101
== END 2017-02-19 14:25 | disposition home or self-care (01) ==
LOC: EME 09:31
DX: G43.909 Migraine, unspecified, not intractable, without status migrainosus (principal); I10 Essential (primary) hypertension; K21.9 Gastro-esophageal reflux disease without esophagitis; K50.90 Crohn's disease, unspecified, without complications; Z87.11 Personal history of peptic ulcer disease; Z87.442 Personal history of urinary calculi; Z86.73 Personal history of transient ischemic attack (TIA), and cerebral infarction without residual deficits; F17.200 Nicotine dependence, unspecified, uncomplicated
CPT/HCPCS: 99281; 99285; J1885; J2270; J2765; J7030

== ENCOUNTER 2017-02-20 19:10 | Emergency (ER) | payer BC ==
[~2017-02-20] VITALS: Ht 167.6 cm; Wt 66.0 kg
[2017-02-20 21:02] VITALS: BP 179/115
== END 2017-02-20 21:03 | disposition home or self-care (01) ==
LOC: EME 19:10
DX: G43.909 Migraine, unspecified, not intractable, without status migrainosus (principal); I10 Essential (primary) hypertension; K21.9 Gastro-esophageal reflux disease without esophagitis; K50.90 Crohn's disease, unspecified, without complications; Z86.73 Personal history of transient ischemic attack (TIA), and cerebral infarction without residual deficits; Z87.442 Personal history of urinary calculi; Z87.11 Personal history of peptic ulcer disease; F17.200 Nicotine dependence, unspecified, uncomplicated; Z88.6 Allergy status to analgesic agent
CPT/HCPCS: 99281; 99284; J1100; J1200; J2765

== ENCOUNTER 2017-06-18 10:21 | Emergency (ER) | payer BC ==
[~2017-06-18] VITALS: Ht 167.6 cm; Wt 67.6 kg
[2017-06-18 16:46] VITALS: BP 175/118
== END 2017-06-18 16:47 | disposition home or self-care (01) ==
LOC: RME 10:21 → EME 10:21 → RME 16:47
DX: G43.909 Migraine, unspecified, not intractable, without status migrainosus (principal); I10 Essential (primary) hypertension; Z86.73 Personal history of transient ischemic attack (TIA), and cerebral infarction without residual deficits; Z87.442 Personal history of urinary calculi; Z87.11 Personal history of peptic ulcer disease; F17.200 Nicotine dependence, unspecified, uncomplicated
CPT/HCPCS: 99281; 99284; J1100; J1200; J1885; J2765

== ENCOUNTER 2017-06-19 20:37 | Emergency (ER) | payer BC ==
[~2017-06-19] VITALS: Ht 167.6 cm; Wt 67.0 kg
[2017-06-19 22:44] LABS: BASOPHIL COUNT 0.1 K/uL (0-0.1); EOSINOPHIL (%) 0.7 % (0-5); EOSINOPHIL COUNT 0.1 K/uL (0-0.3); IMMATURE GRANULOCYTE (%) 0.6 % (0.0-0.7); IMMATURE GRANULOCYTE COUNT 0.1 K/uL; INSTRUMENT ABS NEUTROPHIL CT 12.5 K/uL; LYMPHOCYTE COUNT 3.6 K/uL (1.0-2.8); MCHC 34.2 G/DL (30.0-36.0); MCV 93.4 FL (83-99); MEAN PLAT.VOLUME 9.1 uM^3 (9.5-12.4); MONOCYTE (%) 7.6 % (3-12); MONOCYTE COUNT 1.4 K/uL (0-0.8); NEUTROPHIL (%) 70.3 % (45-76); NEUTROPHIL COUNT 12.5 K/uL (1.8-6.4); PLATELET COUNT 407 K/uL (156-360); RBC DIS.WIDTH-CV 13.8 % (11.8-14.6); RBC DIS.WIDTH-SD 46.5 % (39-53); RED BLOOD COUNT 4.82 M/uL (3.80-5.20); WHITE BLOOD COUNT 17.8 K/uL (4.1-10.2)
[2017-06-19 22:52] LABS: D-DIMER ELISA < 150.00 ng/mLDDU (<230)
[2017-06-20] MEDS ORDERED: VENTOLIN HFA18 GM IH (00:29)
[2017-06-20] MEDS ORDERED: PREDNISONE20 MG PO (00:29)
[2017-06-20 00:44] VITALS: BP 153/117
== END 2017-06-20 00:45 | disposition home or self-care (01) ==
LOC: EME 20:37
PROVIDERS: Physician Assistant
DX: J40 Bronchitis, not specified as acute or chronic (principal); G43.909 Migraine, unspecified, not intractable, without status migrainosus; F17.200 Nicotine dependence, unspecified, uncomplicated; I10 Essential (primary) hypertension; F32.9 Major depressive disorder, single episode, unspecified; K50.90 Crohn's disease, unspecified, without complications; K21.9 Gastro-esophageal reflux disease without esophagitis; F41.9 Anxiety disorder, unspecified; Z86.73 Personal history of transient ischemic attack (TIA), and cerebral infarction without residual deficits; Z88.6 Allergy status to analgesic agent
CPT/HCPCS: 71020; 85025; 85379; 94640; 99281; 99285; J3010; J7512

== ENCOUNTER 2017-06-25 11:09 | Inpatient (IN) | payer BC ==
[~2017-06-25] VITALS: Ht 167.6 cm; Wt 64.2 kg
[~2017-06-25 11:09] MED LIST changes: +PREDNISONE20 MG PO; +VENTOLIN HFA18 GM IH
[2017-06-25 13:05] LABS: HEMATOCRIT 37.4 % (36.0-46.0); HEMOGLOBIN 13.6 G/DL (11.9-15.5); MCH 32.9 PG (29.0-34.0); MCHC 36.4 G/DL (30.0-36.0); MCV 90.3 FL (83-99); RBC DIS.WIDTH-CV 14.6 % (11.8-14.6); RBC DIS.WIDTH-SD 48.1 % (39-53); RED BLOOD COUNT 4.14 M/uL (3.80-5.20); WHITE BLOOD COUNT 16.4 K/uL (4.1-10.2)
[2017-06-25 13:10] LABS: ALBUMIN 3.9 g/dL (3.2-4.8)
[2017-06-25 13:11] LABS: CHLORIDE 118 mEq/L (99-109); POTASSIUM 2.7 mEq/L (3.7-5.4); SODIUM 140 mEq/L (136-147)
[2017-06-25 13:13] LABS: GLUCOSE 197 mg/dL (70-99); TOTAL PROTEIN 7.2 g/dL (6.4-8.3)
[2017-06-25 13:15] LABS: TOTAL BILIRUBIN 1.2 mg/dL (0.0-1.0)
[2017-06-25 13:16] LABS: ALKALINE PHOSPHATASE 326 IU/L (3-129)
[2017-06-25 13:17] LABS: CREATININE 2.7 mg/dL (0.6-1.3); GFR ESTIMATE (CALCULATED) 20 mL/min/
[2017-06-25 13:18] LABS: UREA NITROGEN (BUN) 52 mg/dL (9-23)
[2017-06-25 13:25] LABS: QUANTITATIVE HCG 4.1 MIU/ML
[2017-06-25 13:38] LABS: PLAT.SUFFICIENCY ADEQUATE; PLATELET CLUMPS PRESENT - PLATELET COUNT APPEARS ADQ.; PLATELET COUNT UNABLE TO REPORT K/uL (156-360)
[2017-06-25 13:45] LABS: MAGNESIUM 2.7 mg/dL (1.3-2.7)
[2017-06-25 13:58] LABS: TROP-I INTERPRETATION NEGATIVE; TROPONIN-I 0.03 ng/mL (0.0-0.30)
[2017-06-25 14:16] LABS: LIPASE 596 U/L (1.0-51.0)
[2017-06-25 14:38] LABS: CARBOXY HGB 0.2 % (0-5); COMMENTS - BLOOD GASES A+C+; DEVICE NC; METHEMOGLOBIN 0.5 % (0-1.5); O2 FLOW 2 L/MIN; PCO2 < 18 mm Hg (35-45); PO2 117 mm Hg (80-100); SITE LB; TOTAL RESP RATE 26 resp/min; pH 7.12 (7.35-7.45)
[2017-06-25 15:30] LABS: ACETAMINOPHEN (TYLENOL) 33 mcg/mL (10-30); SALICYLATE < 5.0 MG/DL (15-30)
[2017-06-25 15:33] LABS: ALT (GPT) 4368 IU/L (3-49); AST (GOT) 10167 IU/L (2-34)
[2017-06-25 15:56] LABS: SERUM ETHYL ALCOHOL 33 mg/dL
[2017-06-25 16:18] LABS: APPEARANCE TURBID ((CLEAR)); BILIRUBIN NEGATIVE; BLOOD MODERATE; COLOR AMBER ((YELLOW)); GLUCOSE (STRIP) NEGATIVE; KETONES NEGATIVE; LEUKOCYTES NEGATIVE; NITRITE NEGATIVE; PROTEIN (STRIP) 100; SPECIFIC GRAVITY 1.019 (1.000-1.030); UROBILINOGEN 0.2 MG/DL (0.2-1.0)
[2017-06-25 16:27] LABS: AMPHETAMINE NEGATIVE (500 ng/mL); BARBITURATES NEGATIVE (200 ng/mL); BENZODIAZEPINES NEGATIVE (150 ng/mL); BUPRENORPHINE NEGATIVE (10 ng/mL); COCAINE NEGATIVE (150 ng/mL); METHADONE NEGATIVE (200 ng/mL); METHAMPHETAMINE NEGATIVE (500 ng/mL); OPIATES (MORPHINE) NEGATIVE (100 ng/mL); OXYCODONE NEGATIVE (100 ng/mL); PHENCYCLIDINE NEGATIVE (25 ng/mL); PROPOXYPHENE NEGATIVE (300 ng/mL); THC CANNABINOIDS NEGATIVE (50 ng/mL); TRICYCLIC ANTIDEPRESSANTS NEGATIVE (300 ng/mL)
[2017-06-25 16:47] LABS: BASE EXCESS -25.1 mEq/L (-3 to +3); BICARBONATE 6.6 mEq/L (22-26); CARBOXY HGB 0.2 % (0-5); METHEMOGLOBIN 0.8 % (0-1.5)
[2017-06-25 16:48] LABS: COMMENTS - BLOOD GASES A+C+; DEVICE VENT; FI02 40 %; MECHANICAL RATE 18 resp/min; MODE AC; PCO2 32 mm Hg (35-45); PEEP 6 CM/H20; PO2 82 mm Hg (80-100); SITE LR; TIDAL VOLUME 450 ML; TOTAL RESP RATE 18 resp/min; pH 6.92 (7.35-7.45)
[2017-06-25 16:48] LABS: BACTERIA 2+ /HPF; EPITHELIAL CELLS 1+ /HPF; MUCUS NONE SEEN /LPF; RED BLOOD CELLS 15-20 /HPF (0-5); UCUL ADDED? YES
[2017-06-25 16:49] LABS: AMORPHOUS URATES CRYSTALS 3+
[2017-06-25 17:25] LABS: INTER. NORMALIZED RATIO 2.2
[2017-06-25 17:27] LABS: PTT 23.2 SEC (25-37)
[2017-06-25] MEDS ORDERED: BENTYL20 MG PO (17:49)
[2017-06-25 17:50] VITALS: BP 109/72
[2017-06-25] MEDS ORDERED: ARIPIPRAZOLE10 MG PO (17:50)
[2017-06-25] MEDS ORDERED: FLUOXETINE HCL20 M1 PO (17:50)
[2017-06-25] MEDS ORDERED: AMOX TR-K CLV1 EAC4 PO (17:51)
[2017-06-25] MEDS ORDERED: PANTOPRAZOLE SO40 MG PO (17:52)
[2017-06-25] MEDS ORDERED: POTASSIUM CITR15 MEQ PO (17:54)
[2017-06-25] MEDS ORDERED: PROPRANOLOL HCL60 MG PO (17:57)
[2017-06-25] MEDS ORDERED: TIZANIDINE HCL2 MG PO (17:58)
[2017-06-25] MEDS ORDERED: VENTOLIN HFA18 GM IH (18:00)
[2017-06-25] MEDS ORDERED: UCERIS9 MG PO (18:01)
[2017-06-25] MEDS ORDERED: APRISO0.375 GM PO (18:04)
[2017-06-25] MEDS ORDERED: EXTRA STRENGTH500 M1 PO (18:06)
[2017-06-25 18:30] VITALS: BP 107/72
[2017-06-25 19:00] VITALS: BP 126/77
[2017-06-25 20:00] VITALS: BP 155/104
[2017-06-25 20:36] LABS: BASE EXCESS -15.4 mEq/L (-3 to +3); CARBOXY HGB 0 % (0-5); METHEMOGLOBIN 1.2 % (0-1.5); PCO2 30 mm Hg (35-45)
[2017-06-25 20:37] LABS: BICARBONATE 11.5 mEq/L (22-26); COMMENTS - BLOOD GASES C+; PO2 156 mm Hg (80-100); SITE LR; pH 7.19 (7.35-7.45)
[2017-06-25 20:38] LABS: DEVICE VENT; FI02 40 %; MECHANICAL RATE 24 resp/min; MODE A/C; PEEP 6 CM/H20; TIDAL VOLUME 450 ML; TOTAL RESP RATE 24 resp/min
[2017-06-25 20:53] LABS: ALBUMIN 3.3 G/DL (3.2-4.8); ALKALINE PHOSPHATASE 243 IU/L (3-129); CHLORIDE 118 MEQ/L (99-109); CREATININE 2.5 MG/DL (0.6-1.3); GFR ESTIMATE (CALCULATED) 22 mL/min/; GLUCOSE 320 mg/dL (70-99); POTASSIUM 2.8 MEQ/L (3.7-5.4); SODIUM 143 MEQ/L (136-147); TOTAL BILIRUBIN 1.2 MG/DL (0.0-1.0); TOTAL PROTEIN 5.8 G/DL (6.4-8.3); UREA NITROGEN (BUN) 58 mg/dL (9-23)
[2017-06-25 20:54] LABS: ALT (GPT) > 5000 IU/L (3-49); AST (GOT) 5365 IU/L (2-34)
[2017-06-25 21:00] VITALS: BP 158/94
[2017-06-25 21:16] LABS: MAGNESIUM 2.4 mg/dl (1.3-2.7)
== END 2017-06-25 21:51 | disposition short-term general hospital (02) | DRG 441 ==
LOC: EME 11:09 → EDOF 17:00 → ENRESERV 17:19 → 4WEST 17:58
PROVIDERS: Emergency Medicine; Internal Medicine; Internal Medicine Critical Care Medicine; Nurse Practitioner Family
PROC: 0BH17EZ Insertion of Endotracheal Airway into Trachea, Via Natural or Artificial Opening (ICD-10-PCS; principal; 2017-06-25)
PROC: 5A1935Z Respiratory Ventilation, Less than 24 Consecutive Hours (ICD-10-PCS; principal; 2017-06-25)
DX: K72.00 Acute and subacute hepatic failure without coma (principal); K85.90 Acute pancreatitis without necrosis or infection, unspecified; E87.6 Hypokalemia; N17.9 Acute kidney failure, unspecified; E87.2 Acidosis; Z91.14 Patient's other noncompliance with medication regimen; F17.200 Nicotine dependence, unspecified, uncomplicated; I10 Essential (primary) hypertension; G89.29 Other chronic pain; E11.9 Type 2 diabetes mellitus without complications; K86.1 Other chronic pancreatitis; K21.9 Gastro-esophageal reflux disease without esophagitis; D68.9 Coagulation defect, unspecified; E03.9 Hypothyroidism, unspecified; F32.9 Major depressive disorder, single episode, unspecified; I49.5 Sick sinus syndrome; T39.1X1A Poisoning by 4-Aminophenol derivatives, accidental (unintentional), initial encounter; R45.1 Restlessness and agitation; J96.00 Acute respiratory failure, unspecified whether with hypoxia or hypercapnia; K50.90 Crohn's disease, unspecified, without complications; F41.9 Anxiety disorder, unspecified; F17.210 Nicotine dependence, cigarettes, uncomplicated; Z83.3 Family history of diabetes mellitus; Z86.73 Personal history of transient ischemic attack (TIA), and cerebral infarction without residual deficits; Z87.442 Personal history of urinary calculi; Z95.0 Presence of cardiac pacemaker; Z90.710 Acquired absence of both cervix and uterus; Z87.11 Personal history of peptic ulcer disease
CPT/HCPCS: 36600; 70450; 71010; 74176; 80053; 81003; 82010; 82140; 82693 90; 82803; 82948; 83520 90; 83605; 83690; 83735; 83930; 84100; 84484; 84702; 85027; 85610; 85730; 87086; 87641; 93005; 94002; 99281; 99285; G0480; J0132; J2704; J3010; J3480; J7030; J7060; J7070